=== PATIENT | male | born 1960 | race Caucasian/White ===

== ENCOUNTER 2018-04-25 09:28 | Day surgery (SDC) | payer BC, MEDICAID ==
[2018-04-21 09:17] VITALS: BMI 34.5
[~2018-04-25 09:28] MED LIST: ALPRAZolam 0.25 MG TAB PO PRN; ALPRAZolam 0.5 MG TAB PO PRN; ASPIRIN 325 MG TAB PO ONE; ATORVASTATIN 80 MG TAB PO ONE; NITROGLYCERIN SL TABS 0.4 MG TAB SUBLINGUAL PRN; SODIUM CHLORIDE 0.9% 1,000 ML in EMPTY BAG 1 BAG IV ONE
[2018-04-25 10:01] VITALS: PULSE 71; TEMP 97.8
[2018-04-25] MEDS ORDERED: VERAPAMIL 2.5 MG/ML 2 ML AMP ONE (10:14)
[2018-04-25] MEDS ORDERED: HEPARIN SODIUM 1,000 UN/ML (10ML VL) ONE (10:14)
[2018-04-25] MEDS ORDERED: LIDOCAINE 1% INJ 10MG/ML (20 ML MDV) ONE (10:14)
[2018-04-25] MEDS ORDERED: MIDAZOLAM 2 MG/2 ML VIAL IVP ONE (10:35)
[2018-04-25 10:37] LABS: INR 1.1 (<1.2); Prothrombin Time 11.3 sec (9.0-12.0)
[2018-04-25] MEDS ORDERED: LIDOCAINE 1% INJ 10MG/ML (20 ML MDV) SQ ONE (10:41)
[2018-04-25] MEDS ORDERED: VERAPAMIL SYRINGE (5 MG/10 ML) INTRAARTER ONE (10:44)
[2018-04-25] MEDS ORDERED: HEPARIN SODIUM 1,000 UN/ML (10ML VL) IV ONE (10:45)
[2018-04-25] MEDS ORDERED: MORPHINE SULFATE 4 MG/ML SYRINGE ONE (10:57)
[2018-04-25] MEDS ORDERED: MORPHINE SULFATE 4MG/4ML SYRG IVP ONE (10:59)
[2018-04-25] MEDS ORDERED: IOPAMIDOL-370 100ML BTL INJ ONE (11:02)
[2018-04-25] MEDS ORDERED: RX INFO: IV CONTRAST WAS GIVEN 1 EACH MISC MISCELLANE PRN (11:35)
[2018-04-25] MEDS ORDERED: SODIUM CHLORIDE 0.9% 1,000 ML IV SCH (11:45)
--- NOTE | 2018-04-25 11:55 | CC ---
CARDIAC CATHETERIZATION REPORT DATE OF SERVICE: 04/25/2018. PROCEDURE: Left heart catheterization and coronary angiography. PERFORMED BY: Dr. Rachel Bravo. Moderate conscious sedation time was 27 minutes. Patient was administered Versed and morphine. His oxygen saturation, hemodynamics and EKG were monitored closely. CLINICAL INFORMATION: Mr. Jackson Valerio is a 58-year-old gentleman with a known history of nonischemic cardiomyopathy with diffuse disease in the distal LAD. Also has moderate stable aortic regurgitation. Recently, had a positive stress test with inferior wall lateral fixed defect with hypokinesia with some reversibility and he was therefore advised coronary angiography. Risks, benefits, options and rationale were explained. The patient already has an ICD in place. PROCEDURE NOTE: Under local anesthesia and strict aseptic precautions, a 6-Comoran introducer was placed in the right radial artery. Using an Ultimate 1 catheter, I performed selective coronary angiography of the left coronary system. Using a right Loretta JR4 catheter, I performed selective coronary angiography of the right coronary artery. The same catheter was used to check LV pressures but I did not get a good recording since there was a lot of ventricular ectopy. The catheter was then taken out. The sheath was taken out, a TR band applied as per protocol with good hemostasis. Saturation in the fingers of the right hand was more than 92%. Patient tolerated the procedure well without complications. He was advised medical therapy. CARDIAC CATHETERIZATION FINDINGS: The left ventricular end-diastolic pressure was not very well quantified because patient had some ectopy. No gradient across the aortic valve was noted. Patient does have aortic regurgitation. CORONARY ANGIOGRAPHY FINDINGS: RIGHT CORONARY ARTERY: Technically, a dominant vessel, has no significant disease, supplies a sizable amount of myocardium. Distally bifurcates into a large PDA and PLV. The PDA is larger and PLV is smaller. It also gives off a large acute marginal branch in the mid portion that supplies in the PDA distribution. No significant disease in the dominant RCA system. LEFT MAIN CORONARY ARTERY: Short patent disease-free vessel that bifurcates into LAD and circumflex. LEFT ANTERIOR DESCENDING CORONARY ARTERY: Good caliber vessel, extends along the anterior wall. It gives off septal and diagonal branches in the distal 1/3 after giving off a diagonal branch which is of good size. The LAD has diffuse disease in the distal 1/4, has minor diffuse irregularities, unchanged from the previous catheterization from 2001. The diagonal branches have minor irregularities but no significant disease is noted. LEFT POSTERIOR CIRCUMFLEX CORONARY ARTERY: Technically, a nondominant vessel, gives a high first obtuse marginal and then a second smaller obtuse marginal and distally continues as a posterolateral branches. All these branches have minor irregularities. No significant disease. FINAL IMPRESSION: This patient has a right dominant system. No significant disease in the right coronary artery of circumflex. The distal 1/4 of the left anterior descending artery has diffuse disease unchanged from the previous study from 2001. Left ventricular pressures were not well quantified. RECOMMENDATIONS: I am recommending continued medical therapy with risk factor modification. Patient will have an echocardiogram also performed today prior to discharge. MMODL / IJN: [id number] /
--- NOTE | 2018-04-25 11:55 | LTR ---
DATE OF SERVICE: 04/25/2018 RE: Jackson Valerio Dear Dr. Davis; Thank you for the opportunity to participate in the care of Mr. Jackson Valerio. Please find enclosed my detailed cardiac cath report for your records. I am pleased to report to you that he does not have any significant progression of CAD even though stress test revealed a concern that inferolateral area was probably ischemic or had some infarct. I shared the findings with the patient and . Continued medical therapy with risk factor modification is advised. As you recall, he has nonischemic cardiomyopathy, an ICD and moderate stable aortic regurgitation. Thank you for referring and please call for questions. With kindest regards. Sincerely yours, MD MEGAN Polo / SHERRIE: [id number] /
[2018-04-25] MEDS ORDERED: ACETAMINOPHEN TAB 325 MG TAB ONE (16:47)
[2018-04-25 17:06] VITALS: BP 147/70; RESP 18
[2018-04-25] MEDS ORDERED: NON-FORMULARY DRUG (Metoprolol Tartrate [Lopressor] 100 MG) PO SCH (21:00)
[2018-04-25] MEDS ORDERED: NON-FORMULARY DRUG (Enalapril 5 MG) PO SCH (21:00)
[2018-04-25] MEDS ORDERED: DIGOXIN 125 MCG TAB PO SCH (21:00)
[2018-04-26] MEDS ORDERED: NON-FORMULARY DRUG (Omeprazole [Prilosec] 20 MG) PO SCH (09:00)
[2018-04-26] MEDS ORDERED: ATORVASTATIN 80 MG TAB PO SCH (09:00)
[2018-04-26] MEDS ORDERED: WARFARIN SODIUM 6 MG PO SCH (09:00)
[2018-04-26] MEDS ORDERED: ASPIRIN 325 MG TAB PO SCH (09:00)
--- NOTE | 2018-04-26 12:29 | ECHOF ---
Referral Reason:LV function and aortic regurgation MEASUREMENTS -------- HEIGHT: 185.4 cm WEIGHT: 113.9 kg BP: 133/78 RVIDd: 3.3 cm (< 3.3) IVSd: 1.3 cm (0.6 - 1.1) LVIDd: 5.2 cm (3.9 - 5.3) LVPWd: 1.3 cm (0.6 - 1.1) IVSs: 1.9 cm LVIDs: 3.7 cm LVPWs: 2.1 cm LA Diam: 4.2 cm (2.7 - 3.8) LAESV Index (A-L): 55.02 ml/m Ao Diam: 3.4 cm (2.0 - 3.7) AV Cusp: 2.5 cm (1.5 - 2.6) MV EXCURSION: 16.312 mm (> 18.000) MV EF SLOPE: 48 mm/s (70 - 150) EPSS: 1.4 cm AV maxP.26 mmHg AV meanP.50 mmHg AR PHT: 760 ms RAP: 5.00 mmHg RVSP: 31.41 mmHg FINDINGS -------- Paced rhythm. Pacerwire seen in RV and RA. This was a technically good study. The left ventricular size is normal. There is mild concentric left ventricular hypertrophy. Overa ll left ventricular systolic function is low-normal with, an EF between 50 - 55 %. The right ventricle is mildly enlarged. LA is severely dilated >40 ml/m2 The right atrium is normal in size. There is wcglsfcc-th-wieakw aortic regurgitation. There is mild aortic stenosis present. Peak/barrington n gradient across the Aortic Valve is 17.26mmHg / 8.50mmHg. The mitral valve leaflets are mildly thickened. Mild mitral regurgitation is present. Mild tricuspid regurgitation present. Right ventricular systolic pressure is normal at < 35 mmHg. The right ventricular systolic pressure, as measured by Doppler, is 31.41mmHg. Trace/mild (physiologic) pulmonic regurgitation. The aortic root size is normal. Normal inferior vena cava with normal inspiratory collapse consistent with estimated right atrial pre ssure of 5 mmHg. The inferior vena cava is mildly dilated. There is no pericardial effusion. CONCLUSIONS -------- 1. Paced rhythm. 2. Pacerwire seen in RV and RA. 3. This was a technically good study. 4. The left ventricular size is normal. 5. There is mild concentric left ventricular hypertrophy. 6. Overall left ventricular systolic function is low-normal with, an EF between 50 - 55 %. 7. The right ventricle is mildly enlarged. 8. LA is severely dilated >40 ml/m2 9. There is yvesnorx-ui-vvvopg aortic regurgitation. 10. There is mild aortic stenosis present. 11. Peak/mean gradient across the Aortic Valve is 17.26mmHg / 8.50mmHg. 12. Mild mitral regurgitation is present. 13. Mild tricuspid regurgitation present. 14. Right ventricular systolic pressure is normal at < 35 mmHg. 15. Trace/mild (physiologic) pulmonic regurgitation. 16. The aortic root size is normal. 17. Normal inferior vena cava with normal inspiratory collapse consistent with estimated right atrial pressure of 5 mmHg. 18. The inferior vena cava is mildly dilated. 19. There is no pericardial effusion. OBSTETRICS NURSE PRACTITIONER: Marli Campbell RDCS
== END 2018-04-25 17:00 | disposition home or self-care (01) ==
LOC: CATHCVL 09:28
PROVIDERS: ATTEND Internal Medicine Interventional Cardiology
DX: I25.110 Atherosclerotic heart disease of native coronary artery with unstable angina pectoris (principal); R94.39 Abnormal result of other cardiovascular function study; I42.9 Cardiomyopathy, unspecified; I35.1 Nonrheumatic aortic (valve) insufficiency; I47.2 Ventricular tachycardia; I48.2 Chronic atrial fibrillation; E78.5 Hyperlipidemia, unspecified; I10 Essential (primary) hypertension; Z95.810 Presence of automatic (implantable) cardiac defibrillator; Z79.01 Long term (current) use of anticoagulants; Z79.899 Other long term (current) drug therapy
CPT/HCPCS: 93306; 93458; 85610; C1769; C1894; J2250; J2001; J1644; Q9967; J2270

== ENCOUNTER 2022-04-26 11:32 | Day surgery (SDC) | payer BC ==
[2022-04-22 14:39] VITALS: BMI 34.9
[~2022-04-26 11:32] MED LIST changes: -ALPRAZolam 0.25 MG TAB PO PRN; -ALPRAZolam 0.5 MG TAB PO PRN; -ASPIRIN 325 MG TAB PO ONE; -ATORVASTATIN 80 MG TAB PO ONE; +HYDROmorphone 0.5 MG/0.5 ML SYRINGE IVP PRN; +LACTATED RINGERS 1,000 ML IV SCH; +MIDAZOLAM 2 MG/2 ML VIAL IV PRN; -NITROGLYCERIN SL TABS 0.4 MG TAB SUBLINGUAL PRN; -SODIUM CHLORIDE 0.9% 1,000 ML in EMPTY BAG 1 BAG IV ONE; +ceFAZolin 1 GM in SODIUM CHLORIDE 0.9% IRRIG BTL 250 ML IRRIGATION PRN
[2022-04-26] MEDS: SODIUM CHLORIDE 0.9% 1,000 ML IV SCH ×2 (12:00→17:34)
[2022-04-26 12:20] VITALS: RESP 16
[2022-04-26 12:21] LABS: INR 1.7 (<1.2); Prothrombin Time 16.5 sec (9.0-12.0)
[2022-04-26] MEDS ORDERED: LIDOCAINE 1% INJ 10MG/ML (30 ML VIAL-PF) SQ ONE (14:45)
[2022-04-26] MEDS ORDERED: IOPAMIDOL-370 50ML BTL INJ ONE (15:23)
[2022-04-26] MEDS ORDERED: VANCOMYCIN 1,500 MG in SODIUM CHLORIDE 0.9% 500 ML 500 ML IVPB SCH (15:45)
[2022-04-26] MEDS ORDERED: VANCOMYCIN 1,500 MG in SODIUM CHLORIDE 0.9% 500 ML 500 ML IVPB ONE (15:45)
[2022-04-26] MEDS ORDERED: ACETAMINOPHEN IV (For NPO) 1,000 MG in EMPTY BAG 1 BAG IVPB ONE (16:50)
[2022-04-26] MEDS ORDERED: ACETAMINOPHEN TAB 325 MG TAB PO PRN (16:50)
--- NOTE | 2022-04-26 17:10 | P.EPPROC ---
- EP Procedure Note Electrophysiology Procedure Note: Diagnosis Severe nonischemic current myopathy Persistent atrial fibrillation Congestive heart failure class II, chronic systolic ICD at SOO High RV pacing percentage almost 90% RV pacing Underlying bradycardia on guideline directed medical treatment Procedure: Upgrade to a biventricular ICD/conduction system pacing with His bundle pacing Result: Upgrade to a biventricular ICD, Medtronic / His bundle pacing with excellent thresholds Atrial lead: Chronic [employer] model #83345 Lead, model #4470 serial #[id number]. Stable impedances at 342 ohms Patient in permanent atrial fibrillation RV ICD lead: Dual coil ICD lead, chronic, [employer] model 0148, serial #[id number] implanted in the RV apex R waves 14.8 mV, pacing impedance 817 ohms, HVB impedance 71 ohms, HVA 80 impedance 91 ohms, pacing threshold 0.75 V at 0.4 ms Procedure details: Patient was brought to the EP lab in a fasting state. Written informed consent was obtained prior to the procedure. Options, pros and cons, benefits and risks and complications discussed with patient in detail prior to the procedure (shared decision making). Importance of continuing medical treatment emphasized. Alternatives discussed. Patient would like to proceed with upgrade to a Bi V ICD in view of 90% RV pacing was severe cardio myopathy with congestive heart failure Left upper extremity venogram performed. 15 mL IV dye injected in the left arm. Patent axillary/subclavian vein The left pectoral area was prepped and draped as a protocol. IV antibiotics administered 1% lidocaine was used for local anesthesia. A 4 cm incision was made parallel to the deltopectoral groove, about 1.5 cm medial to it. The incision was carried down to the level of the pectoralis muscle and the subfascial pocket was made. Hemostasis was assured. The axillary vein access was obtained. Appropriately sized into to see sheaths were placed. Thick capsule with granulation tissue No active infection no pus The capsule was carefully excised almost in toto Leads was slowly freed and dissection from this capsule and rechecked again and lead function was found to be stable for both RV lead and the atrial lead Thereafter axillary vein access was obtained the level of the first rib Access was difficult on account of significant scarring in the pocket. However it was successfully accomplished without any acute complications and a guidewire was placed in the central circulation Extended procedure duration A Medtronic pacing lead , model #3830-lead was positioned along with its appropriate sheaths The His bundle signal was noted with current of injury The lead was screwed in Exelon current of injury with excellent thresholds In the bipolar mood the threshold was 0.75 V at 1 ms In the unipolar mode, the His bundle threshold was less than 0.8 mV at 1 ms Excellent His bundle current of injury Lead secured to the underlying transverse muscle after removing sheaths . Pocket irrigated with antibiotic solution Antibiotic pouch placed Leads connected to the biventricular ICD generator. Wound closed in 3 layers and dressed per protocol Biventricular ICD interrogated and programmed. Appropriate pacing parameters, antitachycardia therapies with antitachycardia pacing cardioversion defibrillations programmed. Bradycardia pacing at VVIR 60-130 bpm with preferential His bundle pacing, LV before RV by 80 ms, to avoid RV pacing Patient tolerated the procedure well without any acute complications. Plan in 2 months, defibrillation threshold testing Patient's INR is subtherapeutic and hence this was deferred
--- NOTE | 2022-04-26 17:18 | P.PRLE ---
RE: Jackson Valerio Discomfort Ed Iman bases his right ventricle via the ICD lead greater than 90% of the time His device was at SOO and I upgraded him to a biventricular ICD with conduction system pacing I got an excellent His bundle position with excellent thresholds of 0.75 V at 1 ms He will now be pacing via the conduction system with a narrow QRS and hopefully this will help with his LV function and systolic heart failure I will also advised him to stop drinking completely I have reduced his dose of digoxin to 0.125 mg by mouth once daily only I would also recommend initiating ENTRESTO in place of Vasotec Thank you for entrusting me with the care of the patient Warm regards Sincerely Jonatan Michel
[2022-04-26] MEDS ORDERED: WARFARIN 3 MG TAB PO SCH (18:00)
[2022-04-26 18:07] LABS: ALT 26 U/L (4-49); AST 26 U/L (17-59); African American GFR (CKD) >90 (>60 ml/min/1.73 sqM); Albumin 4.1 g/dL (3.5-5.0); Alkaline Phosphatase 72 U/L (38-126); Anion Gap 6 mmol/L; Blood Urea Nitrogen 16 mg/dL (9-20); Calcium 8.7 mg/dL (8.4-10.2); Carbon Dioxide 25 mmol/L (22-30); Chloride 107 mmol/L (98-107); Glucose 97 mg/dL (74-99); Non-African American GFR(CKD) >90 (>60 ml/min/1.73 sqM); Potassium 4.1 mmol/L (3.5-5.1); Sodium 138 mmol/L (137-145); Total Bilirubin 2.4 mg/dL (0.2-1.3); Total Protein 6.5 g/dL (6.3-8.2)
[2022-04-26] MEDS: METOPROLOL TARTRATE 50 MG TAB PO SCH (20:43)
[2022-04-26] MEDS ORDERED: DIGOXIN 125 MCG TAB PO SCH (21:00)
[2022-04-26] MEDS ORDERED: lisinopriL 10 MG TAB PO SCH (21:00)
[2022-04-26] MEDS ORDERED: ATORVASTATIN 80 MG TAB PO SCH (21:00)
[2022-04-27] MEDS: SODIUM CHLORIDE 0.9% 1,000 ML IV SCH ×2 (01:10→03:24)
[2022-04-27 06:03] LABS: INR 1.5 (<1.2); Prothrombin Time 14.7 sec (9.0-12.0)
--- NOTE | 2022-04-27 08:36 | XR ---
EXAMINATION TYPE: XR chest 1V portable DATE OF EXAM: 04/27/2022 COMPARISON: 08/14/2010 HISTORY: Lead placement check TECHNIQUE: Single frontal view of the chest is obtained. FINDINGS: There is no focal air space opacity, pleural effusion, or pneumothorax seen. The cardiac silhouette size is within normal limits. The osseous structures are intact. There is enlarged and t here is a multilead cardiac device seen with no evidence of pneumothorax. There appear to be multiple atrial and ventricular leads correlate clinically. IMPRESSION: 1. No postprocedural complication identified.
[2022-04-27 08:46] VITALS: BP 125/76; PULSE 63; TEMP 97.5
[2022-04-27] MEDS: METOPROLOL TARTRATE 50 MG TAB PO SCH (08:58)
[2022-04-27] MEDS ORDERED: PANTOPRAZOLE 40 MG TABLET PO SCH (09:00)
[2022-04-27] MEDS ORDERED: DIGOXIN 125 MCG TAB PO SCH (09:00)
--- NOTE | 2022-04-27 17:11 | P.DS ---
Providers Attending physician: Jonatan Michel Primary care physician: [facility] Course: Patient is doing well. Resting comfortably in bed He is ambulating around the room without any symptoms no chest discomfort dizziness lightheadedness or palpitations ICD site is healing well minimal hematoma minimal swelling On examination afebrile 97.5F pulse rate in the 60s blood pressure 125/76. His mercury Breath sounds are clear no rhonchi or crackles Heart sounds S1 and S2 are normal Breath sounds are clear Twelve-lead EKG shows selective His bundle capture Device interrogation reveals excellent His bundle lead thresholds of 0.5 V at 1 ms Labs TSH 2.4 INR 1.5 Normal electrolytes Impression Successful upgrade to a biventricular ICD with His bundle pacing with excellent thresholds Known nonischemic cardio myopathy with severe LV dysfunction and CHF class 2-3 Normal TSH Suggest Continue warfarin 6 mg by mouth daily PT/INR check in a few days again in the office, if low then increase warfarin dose Continue beta blockers and enalapril Reduce digoxin to 0.125 mg by mouth daily Continue atorvastatin Complete abstinence from alcohol consumption Consider ENTRESTO in place of enalapril Patient will follow Dr. Bravo in a week and device clinic Patient Condition at Discharge: Good Plan - Discharge Summary Discharge Rx Participant: No New Discharge Prescriptions: New Digoxin [Digitek] 125 mcg PO DAILY #90 tab Discontinued Digoxin [Lanoxin] 125 mcg PO BID No Action Omeprazole [PriLOSEC] 20 mg PO DAILY Warfarin Sodium [Coumadin] 6 mg PO DAILY Metoprolol Tartrate [Lopressor] 100 mg PO BID Enalapril [Vasotec] 5 mg PO HS Atorvastatin [Lipitor] 80 mg PO HS Discharge Medication List Enalapril [Vasotec] 5 mg PO HS 04/25/14 [History] Metoprolol Tartrate [Lopressor] 100 mg PO BID 04/25/14 [History] Omeprazole [PriLOSEC] 20 mg PO DAILY 04/25/14 [History] Warfarin Sodium [Coumadin] 6 mg PO DAILY 04/25/14 [History] Atorvastatin [Lipitor] 80 mg PO HS 04/21/18 [History] Digoxin [Digitek] 125 mcg PO DAILY #90 tab 04/26/22 [Rx] Follow up Appointment(s)/Referral(s): Luly Bravo MD [STAFF PHYSICIAN] - 07/26/22 2:45 pm (Device clinic follow-up in 7 days - Office will call patient with appointment Follow Dr. Bravo in 3 months 07/26/22 @ 2:45 pm ) Patient Instructions/Handouts: Implantable Cardioverter Defibrillator (GEN), Pacemaker (GEN) Activity/Diet/Wound Care/Special Instructions: PATIENT EDUCATION MATERIAL Instructions following a heart rhythm device implant. 1. Keep dressing DRY for 5 DAYS. You may cover the area with Saran or Cling Wrap, prior to a shower. 2. The dressing will be removed in the Device Clinic at [facility]. Absorbable sutures were used to close the wound. 3. Avoid raising the left arm above the shoulder level. 4 week restriction 4. Avoid arm movements, like backscratching, rubbing the head, or pulling on a cord. 4 weeks restriction 5. Gentle range of motion movements of the shoulder, closest to the incision should be performed to avoid a frozen shoulder. (Pendulum exercises of the shoulder) 6. The opposite arm may be used freely. 7. Avoid driving for 7 days. 8. Avoid activities such as golfing, swimming, weed whacking, lifting more than 10 pounds weight, bowling, gymnastics and weight training/lifting. (6 weeks restriction) 9. Activities such as wood chopping with an axe, pull-ups in the gymnasium, power lifting, arc-welding, being close to home induction cooktops will always be a problem. 10. Arm sling is only a reminder not to raise the arm above the head. You do not need to keep the arm completely immobilized. Your free to move the arm and use it and for normal activities. In case of any problems, please call [facility] [place], @ [phone], Attention: Device Clinic Device clinic follow-up in 5 days Follow-up with primary iv rn in 2-3 months Reduce digoxin to 0.125 mg by mouth daily Device check and PT/INR check in 1 week device clinic will call you to sent up an appointment if they do not call you with in next few days please call them to remind them! Discharge Disposition: HOME SELF-CARE
[2022-04-27] MEDS ORDERED: WARFARIN 7.5 MG TAB PO ONE (18:00)
== END 2022-04-27 13:04 | disposition home or self-care (01) ==
LOC: CATHEP 11:32 → 6NMEDSUR 16:25 → CATHEP 04-27 13:04
PROVIDERS: ATTEND Internal Medicine Clinical Cardiac Electrophysiology
DX: I50.22 Chronic systolic (congestive) heart failure (principal); I48.19 Other persistent atrial fibrillation; Z45.02 Encounter for adjustment and management of automatic implantable cardiac defibrillator; Z79.01 Long term (current) use of anticoagulants; Z79.899 Other long term (current) drug therapy
CPT/HCPCS: 33225; 33264; 80053; 84443; 85610 ×2; 71045; C1769 ×3; C1887; C1892; C1898; C1882; J3370; J0690 ×2; J2001; J0131; Q9967

== ENCOUNTER 2022-11-23 06:48 | Day surgery (SDC) | payer BC ==
[~2022-11-23 06:48] MED LIST changes: -HYDROmorphone 0.5 MG/0.5 ML SYRINGE IVP PRN; +LIDOCAINE 1% (10MG/ML) FOR IV START INTRADERMA PRN; -MIDAZOLAM 2 MG/2 ML VIAL IV PRN; -ceFAZolin 1 GM in SODIUM CHLORIDE 0.9% IRRIG BTL 250 ML IRRIGATION PRN
[2022-11-23 07:04] VITALS: TEMP 97
[2022-11-23] MEDS ORDERED: PROPOFOL 10 MG/ML 20 ML VIAL IV ONE (07:37)
[2022-11-23] MEDS ORDERED: fentaNYL (PF) 50 MCG/ML 2 ML AMP ONE (07:37)
[2022-11-23] MEDS ORDERED: MIDAZOLAM 2 MG/2 ML VIAL ONE (07:37)
--- NOTE | 2022-11-23 07:38 | P.GSHP ---
History of Present Illness H&P Date: 11/23/22 Chief Complaint: GERD, screening 62-year-old male here for upper and lower endoscopy. Patient with history of chronic reflux. History of previous gastric Gist tumor. Last upper and lower endoscopy in 2016. Patient had gastritis and diverticulosis found at that time. No bowel complaints currently. No family history of colon cancer. Past Medical History Past Medical History: Atrial Fibrillation, Atrial Flutter, Cancer, GERD/Reflux, Hyperlipidemia, Hypertension Additional Past Medical History / Comment(s): Gastritis/diverticular disease/hx stomach ca, hx of bradycardia, v tach {stress test induced},cardiomyopathy, aortic valve disorder, stomach cancer with partial removal of stomach, no chemo or radiation. 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 Past Anesthesia/Blood Transfusion Reactions: No Reported Reaction, Blood Transfusion Reaction Additional Past Anesthesia/Blood Transfusion Reaction / Comment(s): broke out in hives with blood transfusion Type of Cardiac Device: Permanent Pacemaker, AICD Device Placement Date:: 1998, 2013, 2022 Smoking Status: Never smoker - Past Family History Father History Unknown: Yes Family Medical History: Coronary Artery Disease (CAD) Additional Family Medical History / Comment(s): , possibly d/t stomach cancer. Medications and Allergies Home Medications Medication Instructions Recorded Confirmed Type Enalapril [Vasotec] 5 mg PO HS 04/25/14 11/23/22 History Metoprolol Tartrate [Lopressor] 100 mg PO BID 04/25/14 11/23/22 History Omeprazole [PriLOSEC] 20 mg PO QAM 04/25/14 11/23/22 History Atorvastatin [Lipitor] 80 mg PO HS 04/21/18 11/23/22 History Acetaminophen [Tylenol] 325 mg PO Q4H PRN 11/17/22 11/23/22 History Digoxin [Digitek] 125 mcg PO QAM 11/17/22 11/23/22 History Rivaroxaban [Xarelto] 20 mg PO QAM 11/17/22 11/23/22 History Allergies Allergy/AdvReac Type Severity Reaction Status Date / Time No Known Allergies Allergy Verified 11/23/22 06:59 Surgical - Exam Vital Signs Temp Pulse Resp BP Pulse Ox 97.0 F L 85 18 119/85 100 11/23/22 06:55 11/23/22 06:55 11/23/22 06:55 11/23/22 06:55 11/23/22 06:55 Physical exam: General: Well-developed, well-nourished HEENT: Normocephalic, sclerae nonicteric Abdomen: Nontender, nondistended Extremities: No edema Neuro: Alert and oriented Assessment and Plan (1) GERD (gastroesophageal reflux disease) Narrative/Plan: Will proceed with upper and lower endoscopy Current Visit: Yes Status: Acute Code(s): K21.9 - GASTRO-ESOPHAGEAL REFLUX DISEASE WITHOUT ESOPHAGITIS SNOMED Code(s): 305297709
--- NOTE | 2022-11-23 08:05 | P.PCN ---
Date of Procedure: 11/23/22 Procedure(s) Performed: PREOPERATIVE DIAGNOSIS: GERD, screening POSTOPERATIVE DIAGNOSIS: Mild gastritis, postsurgical changes, ascending colon polyps, transverse colon, diverticulosis PROCEDURE: 1. EGD with biopsy 2. Colonoscopy with snare polypectomy ANESTHESIA: MAC SURGEON: Bharat Monte M.D. SPECIMENS: Antrum, polyps ENDOSCOPIC PROCEDURE: The patient was on the endoscopy table in the left decubitus position. The Olympus gastroscope was inserted into the oropharynx and passed under direct visualization to the region of the third portion of the duodenum. From that point the scope was slowly withdrawn inspecting all surfaces carefully. There were no neoplastic inflammatory or polypoid lesions throughout the duodenum. The pylorus was widely patent. The stomach was carefully inspected. There was postsurgical changes in the antrum. Mild inflammation was seen there and a biopsy was taken. A biopsy of the antrum took place to rule out H. pylori. Retroflexion revealed a normal hiatus. The esophagus was then carefully examined. There were no neoplastic inflammatory or polypoid lesions throughout the visualized esophagus. The patient was kept on the endoscopy table in the left decubitus position. The Olympus colonoscope was inserted into the anus and passed under direct visu alization to the base of the cecum. The appendiceal orifice was visualized. From that point the scope was slowly withdrawn inspecting all surfaces carefully. There were no neoplastic inflammatory or polypoid lesions throughout the cecum. In the ascending colon there were 2 small polyps removed using the snare with cautery technique. In the transverse colon 2 additional polyps were seen and removed in a similar fashion. The remainder of the transverse descending sigmoid and rectum appeared normal. There was mild left-sided diverticulosis. Digital rectal examination was normal. The patient was taken to the recovery room in stable condition per anesthesia guidelines. RECOMMENDATIONS: Await biopsies results. Repeat EGD and colonoscopy 5 years.
[2022-11-23 08:39] VITALS: BP 119/82; PULSE 60; RESP 20
== END 2022-11-23 08:48 | disposition home or self-care (01) ==
LOC: ORWHC2ENDO 06:48
PROVIDERS: ATTEND Surgery
DX: Z12.11 Encounter for screening for malignant neoplasm of colon (principal); D12.3 Benign neoplasm of transverse colon; K29.50 Unspecified chronic gastritis without bleeding; K21.9 Gastro-esophageal reflux disease without esophagitis; K57.30 Diverticulosis of large intestine without perforation or abscess without bleeding; I48.91 Unspecified atrial fibrillation; I10 Essential (primary) hypertension; E78.5 Hyperlipidemia, unspecified; I42.9 Cardiomyopathy, unspecified; Z90.89 Acquired absence of other organs; Z95.810 Presence of automatic (implantable) cardiac defibrillator; Z82.49 Family history of ischemic heart disease and other diseases of the circulatory system; Z79.899 Other long term (current) drug therapy
CPT/HCPCS: 88305; 45385; 43239; J2250; J3010; J2704

== ENCOUNTER → 2024-12-11 | Outpatient (CLI) | payer BC ==
--- NOTE | 2024-12-11 16:18 | XR ---
EXAMINATION TYPE: XR knee complete RT DATE OF EXAM: 12/11/2024 3:47 PM INDICATION: Patient age:Male; 64 years old; Reason for study: [id number] RT KNEE PAIN; [facility]. pain COMPARISON: Right tibia/fibula radiograph 05/06/2015 TECHNIQUE: The Right knee(s) was examined in Frontal, lateral and oblique projections. FINDINGS: No evidence of any acute osseous pathology, soft tissue swelling, or joint effusion is no jessica. No significant joint space narrowing or osteophytosis. IMPRESSION: No acute osseous pathology. [facility], , 12/11/2024 4:15 PM
== END | disposition home or self-care (01) ==
LOC: RADXRYALE 15:36
PROVIDERS: ATTEND Family Medicine
DX: M25.561 Pain in right knee (principal)